=== PATIENT | male | born 1985 | race Caucasian/White ===

== ENCOUNTER 2020-12-26 22:07 | Emergency (ER) | payer BC, SELFPAY ==
[2020-12-26 22:16] VITALS: BP 146/65; PULSE 83; RESP 15; TEMP 36.7; O2SAT 99; BMI 23.5
[2020-12-26] MEDS: TET,DIPH,PERTUSS(ACELL),VAC/PF 0.5 ML SYRINGE IM (22:37)
[2020-12-26] MEDS: LIDO 1%/SOD BICARB 8.4% (10ML) 10 ML SYRINGE INJ (22:53)
--- NOTE | 2020-12-27 00:22 | ED_ITS ---
HPI - Wound/Laceration General Chief Complaint: Wound/Laceration Stated Complaint: LACERATION RIGHT HAND INDEX FINGER Time Seen by Provider: 12/26/20 22:18 Source: patient Mode of arrival: Ambulatory Limitations: no limitations History of Present Illness HPI narrative: 35-year-old gentleman with no significant medical issues presents with a laceration to the palmar surface of the 1st finger just distal to the PIP joint. He had been out cramping and caught his finger on the edge of the line. He is neurovascularly intact. Related Data Allergies Allergy/AdvReac Type Severity Reaction Status Date / Time No Known Drug Allergies Allergy Verified 12/26/20 22:16 Review of Systems Review of Systems Narrative: Pertinent positive and negative findings as per HPI Remainder of review of systems is otherwise unremarkable for Constitutional: Fevers, chills, weakness ENT: No sore throat, neck pain, ear pain CV: Chest pain, palpitations, Respiratory: Cough, wheeze, dyspnea GI: Nausea, vomiting, diarrhea, Patient History Social History Smoking Status: Never smoker Smoking Status: Never smoker alcohol intake frequency: a few times a month Substance Use Type: does not use Exam Narrative Exam Narrative: General: Alert appropriate in no acute distress Respiratory: Able to speak in full sentences, no obvious respiratory distress Skin: No obvious rashes, warm and dry Neurologic: Grossly intact no obvious asymmetries or abnormalities Psych, appropriate insight and affect, cooperative Extremity: 1.5 cm laceration palmar surface 1st finger right hand just distal to the PIP joint with no tendon or bone involvement. Neurovascularly intact distal to the wound. Initial Vital Signs Initial Vital Signs: Vital Signs Temperature 98.1 F 12/26/20 22:16 Pulse Rate 83 12/26/20 22:16 Respiratory Rate 15 12/26/20 22:16 Blood Pressure 146/65 H 12/26/20 22:16 Pulse Oximetry 99 12/26/20 22:16 Procedures Laceration Repair Right 1st finger: Site: hand Side (If applicable): right Size (cm): 1.5 Description: irregular Depth: simple, single layer Local Anesthetic: lidocaine 1% and with bicarb Amount of anesthesia used (mL): 4 Pre-repair: wound explored and deep structures intact Skin layer closed with: nylon Size (cm): 4-0 Number of sutures: 5 Technique: simple, interrupted and horizontal mattress (One bigger horizontal mattress suture for hemostasis control) Course Orders Ordered: Discontinued Medications Diphtheria/Tetanus/Acell Pertussis (Tet,Diph,Pertuss(Acell),Vac/Pf 0.5 Ml Syringe) 0.5 ml IM .ONCE ONE Stop: 12/26/20 22:17 Last Admin: 12/26/20 22:37 Dose: 0.5 ml Documented by: BIANKA Lidocaine/Sodium Bicarbonate (Lido 1%/Sod Bicarb 8.4% (10ml) 10 Ml Syringe) 10 ml INJ NOW ONE Stop: 12/26/20 22:46 Last Admin: 12/26/20 22:53 Dose: 10 ml Documented by: ANGELICA Vital Signs Vital signs: Vital Signs - 8 hr 12/26/20 22:16 Temperature 98.1 F Pulse Rate 83 Respiratory Rate 15 Blood Pressure 146/65 H Pulse Oximetry 99 MDM - Wound/Laceration MDM Narrative Medical decision making narrative: 35-year-old gentleman with small laceration to the palmar surface of his 1st index finger. Sutures without difficulty. No evidence of infection. Tetanus status is updated. He is safe for home discharge Discharge Plan Departure Patient Disposition: Home Clinical Impression: Laceration Instructions: DI for Laceration Repair Activity Restrictions/Additional Instructions: Thank you for coming in today The wound itself is clean. There was a bit of difficulty with bleeding. The stitches will need to come out on or about January 03. If you notice any increasing redness or drainage from the area you need to have it re-evaluated. You did get a tetanus shot today. I would recommend at least 2 more weeks before you do your 2nd Moderna shot. I hope the rest of your boys weekend on [facility] is fun
[2020-12-27 00:24] VITALS: BP 113/54; PULSE 66; RESP 15; O2SAT 97
== END 2020-12-27 00:28 | disposition home or self-care (01) ==
PROVIDERS: Emergency Provider Emergency Medicine
DX: S61.210A Laceration without foreign body of right index finger without damage to nail, initial encounter (principal); W26.8XXA Contact with other sharp object(s), not elsewhere classified, initial encounter; Z23 Encounter for immunization
CPT/HCPCS: 12001; 90471; 99283; 90715